=== PATIENT | female | born 1945 | race Caucasian/White ===

== ENCOUNTER 2016-08-24 16:50 | Inpatient (IN) | payer OTHER, MEDICARE ==
[~2016-08-24] VITALS: Ht 165.1 cm; Wt 114.4 kg
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
--- NOTE | ~2016-08-24 | PN ---
PATIENT'S NAME: REJI KRAUS [facility] AGE: 71 Y [address] ROOM: [place] [address] LOCATION: [facility] ADMIT DATE: 08/24/2016 Progress Notes DISCHARGE DATE: FAMILY PHYSICIAN: Renny Kraus MD ATTENDING PHYSICIAN: Najma Simon DATE OF SERVICE: 08/31/2016 ADDENDUM: This patient will receive another chest x-ray. Her subcutaneous emphysema has not progressed and that is to review her right pneumothorax. She also developed Clostridium difficile. MD HEATHER SNYDER/maximo /[id number] d: 08/31/16 0643 t: 09/04/16 1824, PROGRESS NOTES
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
[2016-08-24 17:19] LABS: BASOPHIL # 0.1 K/uL (0.0-0.2); BASOPHIL % 0.3 %; EOSINOPHIL % 0.1 %; HEMOGLOBIN 13.7 g/dL (10.0-15.0); IMMATURE GRANULOCYTE # 0.2 K/uL (0.0-0.3); LYMPHOCYTE # 1.7 K/uL (0.8-4.0); LYMPHOCYTE % 10.6 %; MCH 31.1 pg (27.0-34.0); MCHC 32.6 gm/dL (32.0-36.5); MCV 95.2 fl (83.0-98.0); MPV 8.8 fl (9.4-12.4); NEUTROPHIL # (ANC) 13.5 K/uL (1.8-7.8); NRBC % 0 /100WBC (0-0.00); PLATELET COUNT 316 K/uL (150-450); RBC 4.41 M/uL (3.50-5.50); RDW-CV 13.1 % (11.9-14.6); WBC 16.5 K/uL (4.0-11.0)
[2016-08-24] MEDS ORDERED: BENADRYL25 MG PO (20:32)
[2016-08-24] MEDS ORDERED: FLONASE 50 MCG/16 GM NOSE (20:32)
[2016-08-24] MEDS ORDERED: ZYRTEC10 MG PO (20:32)
[2016-08-24] MEDS ORDERED: MEVACOR20 MG PO (20:33)
[2016-08-24] MEDS ORDERED: PROVENTIL OR V6.7 GM INH (20:33)
[2016-08-24] MEDS ORDERED: ASPIRIN LO-DOSE81 MG PO (20:33)
[2016-08-24] MEDS ORDERED: COLESTIPOL HCL1 GM PO (20:34)
[2016-08-24] MEDS ORDERED: LEVOTHROID (S150 MCG PO (20:34)
[2016-08-24] MEDS ORDERED: LOSARTAN-HCTZ1 EAC2 PO (20:34)
[2016-08-24] MEDS ORDERED: EFFEXOR75 MG PO (20:35)
[2016-08-24] MEDS ORDERED: MULTIPLE VITAM1 EAC2 PO ×2 (20:35→20:36)
[2016-08-24] MEDS ORDERED: ALEVE220 MG PO (20:36)
[2016-08-24] MEDS ORDERED: ADVIL200 MG PO (20:36)
[2016-08-24] MEDS ORDERED: CALCIUM 600 +1 EAC3 PO (20:37)
[2016-08-24] MEDS ORDERED: FIBER LAXATIVE625 MG PO (20:38)
[2016-08-26 04:25] LABS: BASOPHIL % 0.3 %; HEMOGLOBIN 10.5 g/dL (10.0-15.0); IMMATURE GRANULOCYTE # 0.1 K/uL (0.0-0.3); IMMATURE GRANULOCYTE % 0.6 %; LYMPHOCYTE # 1.4 K/uL (0.8-4.0); MCH 31.3 pg (27.0-34.0); MCV 95.5 fl (83.0-98.0); MONOCYTE # 0.7 K/uL (0.0-1.0); MONOCYTE % 6.3 %; MPV 9.6 fl (9.4-12.4); NEUTROPHIL # (ANC) 9.2 K/uL (1.8-7.8); NEUTROPHIL % 80.8 %; NRBC % 0 /100WBC (0-0.00); RBC 3.35 M/uL (3.50-5.50); RDW-CV 13.5 % (11.9-14.6); WBC 11.4 K/uL (4.0-11.0)
[2016-08-26 04:34] LABS: MCHC 32.8 gm/dL (32.0-36.5); PLATELET COUNT 184 K/uL (150-450)
[2016-08-26 04:39] LABS: ALBUMIN 3.3 gm/dL (3.5-5.0); ANION GAP 13.4 (10.0-19.0); CALCIUM 8.5 mg/dL (8.5-10.5); POTASSIUM 4.4 mMol/L (3.7-5.1); TOTAL BILIRUBIN 0.7 mg/dL (0.0-1.5); TOTAL PROTEIN 6.7 g/dL (6.0-8.4)
[2016-08-27 04:06] LABS: BASOPHIL % 0.1 %; HEMATOCRIT 28.8 % (33.0-46.0); HEMOGLOBIN 9.6 g/dL (10.0-15.0); IMMATURE GRANULOCYTE # 0.1 K/uL (0.0-0.3); IMMATURE GRANULOCYTE % 0.7 %; LYMPHOCYTE # 0.9 K/uL (0.8-4.0); LYMPHOCYTE % 11.1 %; MCH 31.4 pg (27.0-34.0); MCHC 33.3 gm/dL (32.0-36.5); MCV 94.1 fl (83.0-98.0); MONOCYTE # 0.7 K/uL (0.0-1.0); MONOCYTE % 8.3 %; MPV 9.6 fl (9.4-12.4); NEUTROPHIL # (ANC) 6.4 K/uL (1.8-7.8); NEUTROPHIL % 79.8 %; NRBC % 0 /100WBC (0-0.00); PLATELET COUNT 155 K/uL (150-450); RBC 3.06 M/uL (3.50-5.50); RDW-CV 13.5 % (11.9-14.6)
[2016-08-27 04:21] LABS: ANION GAP 12.1 (10.0-19.0); BLOOD UREA NITROGEN 21 mg/dL (6-24); CALCIUM 8.8 mg/dL (8.5-10.5); CHLORIDE 98 mMol/L (96-110); CO2 28 mMol/L (22-32); CREATININE 0.6 mg/dL (0.5-1.1); ESTIMATED GFR (MDRD EQUATION) > 60; POTASSIUM 4.1 mMol/L (3.7-5.1); SODIUM 134 mMol/L (135-145)
[2016-08-28 03:58] LABS: BASOPHIL % 0.3 %; EOSINOPHIL % 0.2 %; HEMATOCRIT 30.2 % (33.0-46.0); IMMATURE GRANULOCYTE # 0.1 K/uL (0.0-0.3); IMMATURE GRANULOCYTE % 0.8 %; LYMPHOCYTE % 15.3 %; MCH 31.3 pg (27.0-34.0); MCHC 33.1 gm/dL (32.0-36.5); MCV 94.4 fl (83.0-98.0); MONOCYTE # 0.8 K/uL (0.0-1.0); MONOCYTE % 12.4 %; MPV 9.5 fl (9.4-12.4); NEUTROPHIL # (ANC) 4.5 K/uL (1.8-7.8); NRBC % 0 /100WBC (0-0.00); PLATELET COUNT 176 K/uL (150-450); RDW-CV 13.5 % (11.9-14.6); WBC 6.3 K/uL (4.0-11.0)
[2016-08-28 04:17] LABS: ALBUMIN 2.8 gm/dL (3.5-5.0); ALK PHOS 66 IU/L (33-138); ALT 79 IU/L (12-78); BLOOD UREA NITROGEN 14 mg/dL (6-24); CALCIUM 8.4 mg/dL (8.5-10.5); CHLORIDE 95 mMol/L (96-110); CO2 31 mMol/L (22-32); CREATININE 0.5 mg/dL (0.5-1.1); ESTIMATED GFR (MDRD EQUATION) > 60; SODIUM 134 mMol/L (135-145); TOTAL BILIRUBIN 0.7 mg/dL (0.0-1.5); TOTAL PROTEIN 6.5 g/dL (6.0-8.4)
[2016-08-28 04:19] LABS: ANION GAP 11.9 (10.0-19.0); AST 82 IU/L (10-40); POTASSIUM 3.9 mMol/L (3.7-5.1)
[2016-08-29 04:45] LABS: BASOPHIL % 0.2 %; EOSINOPHIL % 0.4 %; HEMATOCRIT 30.9 % (33.0-46.0); HEMOGLOBIN 10.1 g/dL (10.0-15.0); IMMATURE GRANULOCYTE # 0.1 K/uL (0.0-0.3); IMMATURE GRANULOCYTE % 1.1 %; LYMPHOCYTE # 0.9 K/uL (0.8-4.0); LYMPHOCYTE % 19.7 %; MCH 30.9 pg (27.0-34.0); MCHC 32.7 gm/dL (32.0-36.5); MCV 94.5 fl (83.0-98.0); MONOCYTE # 0.6 K/uL (0.0-1.0); MONOCYTE % 12.4 %; MPV 9.7 fl (9.4-12.4); NEUTROPHIL % 66.2 %; NRBC % 0 /100WBC (0-0.00); PLATELET COUNT 200 K/uL (150-450); RBC 3.27 M/uL (3.50-5.50); RDW-CV 13.2 % (11.9-14.6); WBC 4.5 K/uL (4.0-11.0)
[2016-08-29 07:22] LABS: BASOPHIL % 0.6 %; EOSINOPHIL % 0.4 %; HEMATOCRIT 33.3 % (33.0-46.0); HEMOGLOBIN 10.8 g/dL (10.0-15.0); IMMATURE GRANULOCYTE # 0.1 K/uL (0.0-0.3); IMMATURE GRANULOCYTE % 1.4 %; LYMPHOCYTE # 1.1 K/uL (0.8-4.0); LYMPHOCYTE % 22.4 %; MCH 30.9 pg (27.0-34.0); MCHC 32.4 gm/dL (32.0-36.5); MCV 95.4 fl (83.0-98.0); MONOCYTE # 0.7 K/uL (0.0-1.0); MONOCYTE % 14.7 %; MPV 9.6 fl (9.4-12.4); NEUTROPHIL # (ANC) 3.1 K/uL (1.8-7.8); NEUTROPHIL % 60.5 %; NRBC % 0 /100WBC (0-0.00); PLATELET COUNT 207 K/uL (150-450); RBC 3.49 M/uL (3.50-5.50); RDW-CV 13.5 % (11.9-14.6); WBC 5.1 K/uL (4.0-11.0)
[2016-08-29 07:36] LABS: PTT 27 SECONDS (25-32)
[2016-08-29 07:41] LABS: ALBUMIN 2.9 gm/dL (3.5-5.0); ALK PHOS 83 IU/L (33-138); ALT 81 IU/L (12-78); ANION GAP 9.5 (10.0-19.0); AST 84 IU/L (10-40); BLOOD UREA NITROGEN 13 mg/dL (6-24); CALCIUM 8.3 mg/dL (8.5-10.5); CHLORIDE 95 mMol/L (96-110); CO2 34 mMol/L (22-32); CREATININE 0.6 mg/dL (0.5-1.1); ESTIMATED GFR (MDRD EQUATION) > 60; POTASSIUM 3.5 mMol/L (3.7-5.1); SODIUM 135 mMol/L (135-145); TOTAL BILIRUBIN 0.8 mg/dL (0.0-1.5); TOTAL PROTEIN 6.6 g/dL (6.0-8.4)
[2016-08-30 05:01] LABS: BASOPHIL % 0.2 %; EOSINOPHIL % 0.5 %; HEMATOCRIT 30.6 % (33.0-46.0); HEMOGLOBIN 10.2 g/dL (10.0-15.0); IMMATURE GRANULOCYTE # 0.1 K/uL (0.0-0.3); IMMATURE GRANULOCYTE % 1.4 %; LYMPHOCYTE # 1.1 K/uL (0.8-4.0); LYMPHOCYTE % 24.2 %; MCH 30.8 pg (27.0-34.0); MCHC 33.3 gm/dL (32.0-36.5); MCV 92.4 fl (83.0-98.0); MONOCYTE # 0.6 K/uL (0.0-1.0); MONOCYTE % 12.7 %; MPV 9.7 fl (9.4-12.4); NEUTROPHIL # (ANC) 2.6 K/uL (1.8-7.8); NRBC % 0 /100WBC (0-0.00); PLATELET COUNT 215 K/uL (150-450); RBC 3.31 M/uL (3.50-5.50); RDW-CV 13.3 % (11.9-14.6); WBC 4.3 K/uL (4.0-11.0)
[2016-08-30 05:11] LABS: PTT 28 SECONDS (25-32)
[2016-08-30 05:18] LABS: ALBUMIN 2.6 gm/dL (3.5-5.0); ALK PHOS 80 IU/L (33-138); ALT 74 IU/L (12-78); BLOOD UREA NITROGEN 10 mg/dL (6-24); CALCIUM 8.2 mg/dL (8.5-10.5); CHLORIDE 93 mMol/L (96-110); CO2 32 mMol/L (22-32); CREATININE 0.5 mg/dL (0.5-1.1); ESTIMATED GFR (MDRD EQUATION) > 60; SODIUM 134 mMol/L (135-145); TOTAL BILIRUBIN 0.7 mg/dL (0.0-1.5)
[2016-08-30 05:20] LABS: ANION GAP 12.4 (10.0-19.0); AST 82 IU/L (10-40); POTASSIUM 3.4 mMol/L (3.7-5.1)
== END 2016-09-02 11:23 | DRG 199 ==
LOC: GACC 16:50 → GNTU 19:01
PROVIDERS: Family Medicine; Internal Medicine; Internal Medicine Adolescent Medicine; Nurse Practitioner Family; Surgery; ADMIT Neurological Surgery
DX: J93.9 Pneumothorax, unspecified (principal); J15.0 Pneumonia due to Klebsiella pneumoniae; J96.01 Acute respiratory failure with hypoxia; S12.100A Unspecified displaced fracture of second cervical vertebra, initial encounter for closed fracture; S22.010A Wedge compression fracture of first thoracic vertebra, initial encounter for closed fracture; A04.7 Enterocolitis due to Clostridium difficile; S22.020A Wedge compression fracture of second thoracic vertebra, initial encounter for closed fracture; S22.030A Wedge compression fracture of third thoracic vertebra, initial encounter for closed fracture; S22.040A Wedge compression fracture of fourth thoracic vertebra, initial encounter for closed fracture; S22.41XA Multiple fractures of ribs, right side, initial encounter for closed fracture; S22.42XA Multiple fractures of ribs, left side, initial encounter for closed fracture; E11.9 Type 2 diabetes mellitus without complications; E78.5 Hyperlipidemia, unspecified; F32.9 Major depressive disorder, single episode, unspecified; I10 Essential (primary) hypertension; N28.9 Disorder of kidney and ureter, unspecified; S00.03XA Contusion of scalp, initial encounter; V89.2XXA Person injured in unspecified motor-vehicle accident, traffic, initial encounter
CPT/HCPCS: A9270; C9113; J0696; J1170; J1644; J2543; J3010; J7030; J7040; J7050

== ENCOUNTER 2016-09-02 11:30 | Inpatient (IN) | payer MEDICARE, OTHER ==
[~2016-09-02] VITALS: Ht 165.1 cm; Wt 114.5 kg
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
[~2016-09-02 11:30] MED LIST: ADVIL200 MG PO; ALEVE220 MG PO; ASPIRIN LO-DOSE81 MG PO; BENADRYL25 MG PO; CALCIUM 600 +1 EAC3 PO; COLESTIPOL HCL1 GM PO; EFFEXOR75 MG PO; FIBER LAXATIVE625 MG PO; FLONASE 50 MCG/16 GM NOSE; LEVOTHROID (S150 MCG PO; LOSARTAN-HCTZ1 EAC2 PO; MEVACOR20 MG PO; MULTIPLE VITAM1 EAC2 PO; PROVENTIL OR V6.7 GM INH; ZYRTEC10 MG PO
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
== END 2016-09-02 19:03 | disposition other institution (70) | DRG 560 ==
LOC: GSNF 11:30
PROVIDERS: ADMIT Neurological Surgery
DX: S12.9XXD Fracture of neck, unspecified, subsequent encounter (principal); A04.7 Enterocolitis due to Clostridium difficile; Z68.41 Body mass index [BMI] 40.0-44.9, adult; I10 Essential (primary) hypertension; F32.9 Major depressive disorder, single episode, unspecified; E11.9 Type 2 diabetes mellitus without complications; E03.9 Hypothyroidism, unspecified; E78.00 Pure hypercholesterolemia, unspecified
CPT/HCPCS: J1644

== ENCOUNTER → 2016-11-06 | Outpatient (CLI) | payer OTHER, MEDICARE | END | disposition disaster alternative care site (69) | LOC: GRAD 12:49 | DX: M54.2 Cervicalgia (principal); M84.48XD Pathological fracture, other site, subsequent encounter for fracture with routine healing; R51 Headache; Z98.890 Other specified postprocedural states ==